=== PATIENT | male | born 1935 | race Caucasian/White ===

== ENCOUNTER 2025-04-06 14:02 | Outpatient (CLI) | payer MEDICARE, BC ==
[2025-04-06 14:08] LABS: #Basophils 0.0 thou/uL (0.0-0.2); #Eosinophils 0.1 thou/uL (0.0-0.7); #Lymphocytes 1.4 thou/uL (1.20-3.40); #Monocytes 0.8 thou/uL (0.11-0.59); #Neutrophils 5.2 thou/uL (1.40-6.50); %Basophils 0.6 % (0.0-1.0); %Eosinophils 0.8 % (0.0-10.0); %Lymphocytes 18.4 % (21.0-51.0); %Monocytes 10.4 % (0.0-10.0); %Neutrophils 69.8 % (42.0-75.0); Hematocrit 37.0 % (42.0-52.0); Hemoglobin 11.8 g/dL (14.0-18.0); Mean Corpuscular Hemoglobin 29.4 pg (27.0-31.0); Mean Corpuscular Volume 92.1 fl (78.0-98.0); Platelet Count 267 10x3/uL (130-400); Red Blood Cell (RBC) Count 4.02 mill/uL (4.70-6.10); White Blood Cell (WBC) Count 7.4 10x3/uL (4.8-10.8)
[2025-04-06 14:24] LABS: ALT (SGPT) 31 U/L (Less than 45); AST (SGOT) 37 U/L (11-34); Albumin 2.7 g/dL (3.1-4.5); Alkaline Phosphatase 58 U/L (40-110); Anion Gap 14 mmol/L (10-20); BUN (Urea Nitrogen) 36 mg/dL (8.4-25.7); Bilirubin, Total 0.4 mg/dL (0.3-1.2); Calc. Creatinine Clearance 0 mL/min (70-130); Calcium 8.7 mg/dL (7.8-10.44); Carbon Dioxide 26 mmol/L (23-31); Chloride 94 mmol/L (98-107); Globulin 2.4 g/dL (2.4-3.5); Glucose 94 mg/dL (83-110); Potassium 4.9 mmol/L (3.5-5.1); Sodium 129 mmol/L (136-145)
== END 2025-04-06 14:03 | disposition home or self-care (01) ==
LOC: MADLAB 14:02
PROVIDERS: ATTEND Family Medicine
DX: I87.332 Chronic venous hypertension (idiopathic) with ulcer and inflammation of left lower extremity (principal); L89.624 Pressure ulcer of left heel, stage 4
CPT/HCPCS: 80053; 85025